=== PATIENT | male | born 1965 | race Caucasian/White ===

== ENCOUNTER 2020-10-09 14:03 | Emergency (ER) | payer MEDICARE ==
[2020-10-09 14:28] VITALS: TEMP 98.2
[2020-10-09 17:18] VITALS: BP 131/82; PULSE 71; RESP 18
--- NOTE | 2020-10-09 17:33 | ED ---
Abdominal Pain HPI - General Chief Complaint: Abdominal Pain Stated Complaint: ABD pain,Hot flashes Time Seen by Provider: 10/09/20 17:15 Source: patient Mode of arrival: ambulatory Limitations: no limitations - History of Present Illness Initial Comments: 55-year-old male presents to the emergency room with a chief complaint of back pain. States he tested positive for Covid on 10/08/20 and he has been experiencing generalized fatigue and body aches. States most of the pain is located in his lower back. He denies taking medication to relieve his symptoms. He does report having chills and fevers at home. Denies any chest pain or shortness of breath. Denies any abdominal pain, nausea vomiting diarrhea. Does report a nonproductive cough but denies any rhinorrhea, otalgia or sore throat. Patient requesting x-rays of his back. He denies saddle anesthesia, urinary retention with overflow incontinence or bowel incontinence. - Related Data Allergies Allergy/AdvReac Type Severity Reaction Status Date / Time No Known Allergies Allergy Verified 10/09/20 14:28 Review of Systems ROS Statement: Those systems with pertinent positive or pertinent negative responses have been documented in the HPI. ROS Other: All systems not noted in ROS Statement are negative. Past Medical History Past Medical History: Hypertension Additional Past Medical History / Comment(s): covid 10/17 History of Any Multi-Drug Resistant Organisms: None Reported Past Surgical History: Orthopedic Surgery Additional Past Surgical History / Comment(s): rt arm Past Psychological History: Anxiety Smoking Status: Never smoker Past Alcohol Use History: None Reported Past Drug Use History: None Reported General Exam Limitations: no limitations General appearance: alert, in no apparent distress Head exam: Present: atraumatic, normocephalic, normal inspection Eye exam: Present: normal appearance, PERRL, EOMI Pupils: Present: normal accommodation ENT exam: Present: normal exam, normal oropharynx, mucous membranes moist, TM's normal bilaterally, normal external ear exam Neck exam: Present: normal inspection, full ROM. Absent: tenderness Respiratory exam: Present: normal lung sounds bilaterally. Absent: respiratory distress, wheezes, rales, rhonchi, stridor, chest wall tenderness, accessory muscle use Cardiovascular Exam: Present: regular rate, normal rhythm, normal heart sounds. Absent: systolic murmur GI/Abdominal exam: Present: soft. Absent: distended, tenderness, guarding, rebound Extremities exam: Present: normal inspection, full ROM, normal capillary refill. Absent: tenderness, pedal edema, joint swelling Back exam: Present: normal inspection, full ROM, tenderness, paraspinal te nderness (Mild paraspinal tenderness in the lower lumbar region) Neurological exam: Present: alert, oriented X3, normal gait Psychiatric exam: Present: normal affect, normal mood Skin exam: Present: warm, dry, intact, normal color Course Vital Signs 10/09/20 10/09/20 14:25 17:16 Temperature 98.2 F Pulse Rate 93 71 Respiratory 20 18 Rate Blood Pressure 115/84 131/82 O2 Sat by Pulse 95 97 Oximetry Medical Decision Making - Medical Decision Making 55-year-old male presents to emergency Department with chief complaint of back pain. C covid-19d with positive on 10/08/20. No chest pain abdominal pain or shortness of breath. Vital signs within normal limits. Physical exam reveals mild paraspinal bilateral tenderness in the lower lumbar region. X-ray reveals moderate spondylosis at L5-S1. No concern for cauda equina at this time. Return parameters discussed the patient is understanding and agreeable. Case discussed with Dr. Lewis. Disposition Clinical Impression: Back pain Disposition: HOME SELF-CARE Condition: Stable Instructions (If sedation given, give patient instructions): Low Back Strain (ED) Additional Instructions: Please return to the Emergency Department if symptoms worsen or any other concerns. Is patient prescribed a controlled substance at d/c from ED?: No Referrals: Leonel Duque MD [Primary Care Provider] - 1-2 days Time of Disposition: 18:39
--- NOTE | 2020-10-09 18:24 | XR ---
EXAMINATION TYPE: XR lumbar spine 2 or 3V DATE OF EXAM: 10/09/2020 COMPARISON: NONE HISTORY: Back pain TECHNIQUE: 3 views FINDINGS: Lumbar vertebra have normal alignment. Posterior elements are intact. There is vacuum disc at L5-S1 with disc space narrowing. Sacroiliac joints are intact. There is no compression fracture. IMPRESSION: Moderate spondylosis at L5-S1. No fracture.
== END 2020-10-09 18:54 | disposition home or self-care (01) ==
LOC: EC 14:03
DX: M54.9 Dorsalgia, unspecified (principal); I10 Essential (primary) hypertension
CPT/HCPCS: 72100; 99284

== ENCOUNTER 2021-03-29 19:46 | Emergency (ER) | payer MEDICARE ==
[2021-03-29 20:00] VITALS: BP 136/82; PULSE 89; RESP 21; TEMP 98.9
--- NOTE | 2021-03-29 21:50 | XR ---
EXAMINATION TYPE: XR KUB DATE OF EXAM: 03/29/2021 COMPARISON: NONE HISTORY: Abdominal pain TECHNIQUE: 2 views FINDINGS: There is gaseous distention of multiple loops of bowel. There is no sign of free air. Lung bases are clear. There are no pathologic calcifications over the kidneys. IMPRESSION: There is evidence for some large and small bowel ileus. No free air.
--- NOTE | 2021-03-29 22:32 | ED ---
Abdominal Pain HPI - General Chief Complaint: Abdominal Pain Stated Complaint: SOB Time Seen by Provider: 03/29/21 20:27 Source: patient, Caregiver Mode of arrival: ambulatory - History of Present Illness Initial Comments: 55 year-old male patient presents to the emergency department for evaluation of abdominal pain for the last three days. States pain was over his entire abdomen, worse over the midepigastric region. States that today he has taken pepto-bismol without relief. Patient did feel somewhat short of breath prior to arrival. Denies any chest pain. Upon my evaluation patient is feeling much better. States that he passed a lot of gas while in the room and he believes it relieved his symptoms. Patient denies any constipation, nausea, vomiting, or any other symptoms. Denies fever or chills. Denies history of abdominal surgery. Patient denies any recent rash, cough, back pain, numbness, tingling, dizziness, weakness, hematuria, dysuria, urinary urgency, urinary frequency, headache, visual changes, or any other complaints. - Related Data Home Medications Medication Instructions Recorded Confirmed Albuterol Inhaler [Ventolin Hfa 2 puff INHALATION RT-Q6H PRN 03/29/21 03/29/21 Inhaler] Baclofen [Lioresal] 10 mg PO BID 03/29/21 03/29/21 Famotidine [Pepcid] 40 mg PO DAILY 03/29/21 03/29/21 OLANZapine 10 mg PO HS 03/29/21 03/29/21 Umeclidinium Brm/Vilanterol Tr 1 puff INHALATION RT-DAILY 03/29/21 03/29/21 [Anoro Ellipta 62.5-25 Mcg INH] hydrOXYzine pamoate [Vistaril] 100 mg PO BID PRN 03/29/21 03/29/21 rOPINIRole HCL [Requip] 1 mg PO HS 03/29/21 03/29/21 rOPINIRole HCL [Requip] 3 mg PO HS 03/29/21 03/29/21 Allergies Allergy/AdvReac Type Severity Reaction Status Date / Time No Known Allergies Allergy Verified 03/29/21 21:40 Review of Systems ROS Statement: Those systems with pertinent positive or pertinent negative responses have been documented in the HPI. ROS Other: All systems not noted in ROS Statement are negative. Past Medical History Past Medical History: Hypertension Additional Past Medical History / Comment(s): covid 10/17 History of Any Multi-Drug Resistant Organisms: None Reported Past Surgical History: Orthopedic Surgery Additional Past Surgical History / Comment(s): rt arm Past Psychological History: Anxiety Smoking Status: Never smoker Past Alcohol Use History: None Reported Past Drug Use History: None Reported General Exam General appearance: alert, in no apparent distress, other (This is a well- developed, well-nourished adult male patient in no acute distress. Vital signs upon presentation are temperature 98.9F, pulse 89, respirations 21, blood pressure 136/82, pulse ox 96% on room air.) ENT exam: Present: normal exam, normal oropharynx, mucous membranes moist Respiratory exam: Present: normal lung sounds bilaterally. Absent: respiratory distress, wheezes, rales, rhonchi, stridor Cardiovascular Exam: Present: regular rate, normal rhythm, normal heart sounds. Absent: systolic murmur, diastolic murmur, rubs, gallop, clicks GI/Abdominal exam: Present: soft, normal bowel sounds, other (No tenderness to deep palpation of all 4 quadrants and midepigastric region of the abdomen). Absent: distended, tenderness, guarding, rebound, rigid Neurological exam: Present: alert Psychiatric exam: Present: normal affect, normal mood Skin exam: Present: warm, dry, intact, normal color. Absent: rash Course Vital Signs 03/29/21 19:56 Temperature 98.9 F Pulse Rate 89 Respiratory 21 Rate Blood Pressure 136/82 O2 Sat by Pulse 96 Oximetry Medical Decision Making - Medical Decision Making 55-year-old male patient presents to the emergency department today for evaluation of abdominal pain for the last 3 days. During my evaluation patient states that all symptoms resolved after he passed a large amount of gas while waiting in his room. Physical examination is unremarkable. Abdomen is soft and nontender. He is no pain to deep palpation of all 4 quadrants in the midepigastric region of his abdomen. Brother did express some concern for possible constipation as I did perform x-ray of the abdomen which showed evidence for gaseous distention of the large and small bowel consistent with ileus. Patient was reevaluated and again expresses complete resolution of all symptoms. They do feel comfortable being discharged home at this time. We discharged follow up with the primary care physician for recheck in 1-2 days. Return parameters were discussed in great detail. Patient and caregiver verbalize understanding and agree with this plan. Case is discussed with my attending Dr. Murguia. - Radiology Data Radiology results: report reviewed, image reviewed KUB x-ray is obtained. Report was reviewed in its entirety. Impression by Dr. Cantor shows evidence for some large and small bowel ileus. No free air. Disposition Clinical Impression: Abdominal pain Disposition: ADMITTED IP TO THIS [facility] Condition: Good Instructions (If sedation given, give patient instructions): Ileus (ED) Additional Instructions: Pop with the primary care physician for recheck in 1-2 days. Return to the emergency department for any new, worsening, or concerning symptoms. Is patient prescribed a controlled substance at d/c from ED?: No Referrals: Leonel Duque MD [Primary Care Provider] - 1-2 days Time of Disposition: 22:32
== END 2021-03-29 22:48 | disposition other institution (70) ==
LOC: EEVIPCON 19:46 → EC 19:46
DX: R10.13 Epigastric pain (principal); I10 Essential (primary) hypertension; F41.9 Anxiety disorder, unspecified; Z79.51 Long term (current) use of inhaled steroids; Z79.899 Other long term (current) drug therapy
CPT/HCPCS: 74018; 99284

== ENCOUNTER 2021-04-29 10:11 | Emergency (ER) | payer MEDICARE ==
[2021-04-29 10:26] VITALS: TEMP 97.1
--- NOTE | 2021-04-29 10:54 | ED ---
General Adult HPI - General Chief complaint: Shortness of Breath Stated complaint: SOB Time Seen by Provider: 04/29/21 10:30 Source: family, RN notes reviewed, Caregiver Mode of arrival: ambulatory Limitations: altered mental status, physical limitation - History of Present Illness Initial comments: 55-year-old male presents to the emergency room for a chief complaint of shortness of breath. Caregiver reports patient has been sick for the past 2 weeks. States he has had cough and congestion and been short of breath. States his episodes or he starts breathing quickly. He did do a course of amoxicillin from primary care provider but it did not seem to help. No fevers. Caregiver states he complains of pain in his throat like something is stuck in his throat such as phlegm. Patient is eating and drinking normally. he also has been complaining of pain into his chest since all of this started. He is not able to describe the pain to me. Patient has no other complaints at this time including abdominal pain, nausea or vomiting, headache, or visual changes. - Related Data Home Medications Medication Instructions Recorded Confirmed Albuterol Inhaler [Ventolin Hfa 2 puff INHALATION RT-Q6H PRN 03/29/21 03/29/21 Inhaler] Baclofen [Lioresal] 10 mg PO BID 03/29/21 03/29/21 Famotidine [Pepcid] 40 mg PO DAILY 03/29/21 03/29/21 OLANZapine 10 mg PO HS 03/29/21 03/29/21 Umeclidinium Brm/Vilanterol Tr 1 puff INHALATION RT-DAILY 03/29/21 03/29/21 [Anoro Ellipta 62.5-25 Mcg INH] hydrOXYzine pamoate [Vistaril] 100 mg PO BID PRN 03/29/21 03/29/21 rOPINIRole HCL [Requip] 1 mg PO HS 03/29/21 03/29/21 rOPINIRole HCL [Requip] 3 mg PO HS 03/29/21 03/29/21 Allergies Allergy/AdvReac Type Severity Reaction Status Date / Time No Known Allergies Allergy Verified 04/29/21 10:26 Review of Systems ROS Statement: Those systems with pertinent positive or pertinent negative responses have been documented in the HPI. ROS Other: All systems not noted in ROS Statement are negative. Past Medical History Past Medical History: Hypertension Additional Past Medical History / Comment(s): covid 10/17, mentally challenged History of Any Multi-Drug Resistant Organisms: None Reported Past Surgical History: Orthopedic Surgery Additional Past Surgical History / Comment(s): rt arm Past Psychological History: Anxiety Smoking Status: Never smoker Past Alcohol Use History: None Reported Past Drug Use History: None Reported General Exam Limitations: altered mental status, physical limitation General appearance: alert, in no apparent distress Head exam: Present: atraumatic Eye exam: Present: normal appearance, PERRL, EOMI. Absent: scleral icterus, conjunctival injection ENT exam: Present: normal exam, mucous membranes moist Neck exam: Present: normal inspection, full ROM. Absent: tenderness Respiratory exam: Present: normal lung sounds bilaterally. Absent: respiratory distress, wheezes Cardiovascular Exam: Present: regular rate, normal rhythm, normal heart sounds GI/Abdominal exam: Present: soft, normal bowel sounds. Absent: distended, tenderness Neurological exam: Present: alert Course Vital Signs 04/29/21 04/29/21 10:21 11:40 Temperature 97.1 F L Pulse Rate 70 Respiratory 18 20 Rate Blood Pressure 118/71 O2 Sat by Pulse 98 Oximetry EKG Findings - EKG Comments: EKG Findings:: Sinus bradycardia, ventricular rate 59, AK interval 136, QTC 419 Medical Decision Making - Medical Decision Making Vitals are stable. Physical exam is unremarkable. Oropharynx appears normal. Lungs are clear to auscultation bilaterally. CBC is unremarkable. CMP is unremarkable as well. Troponin is negative. Mendez virus and strep are negative. I did obtain a chest x-ray and a soft tissue neck x-ray. No significant abnormalities. He says discussed with Dr. Duong. At this time patient is stable for outpatient follow-up. He would benefit from ENT referral and direct visualization of the throat. Patient will be discharged home to follow up and will return here for worsening symptoms. - Lab Data Result diagrams: 04/29/21 11:38 04/29/21 11:38 Lab Results 04/29/21 04/29/21 04/29/21 Range/Units 11:38 11:38 11:38 WBC 8.6 (3.8-10.6) k/uL RBC 5.39 (4.30-5.90) m/uL Hgb 14.9 (13.0-17.5) gm/dL Hct 45.5 (39.0-53.0) % MCV 84.4 (80.0-100.0) fL MCH 27.7 (25.0-35.0) pg MCHC 32.9 (31.0-37.0) g/dL RDW 14.0 (11.5-15.5) % Plt Count 322 (150-450) k/uL MPV 6.7 Neutrophils % 78 % Lymphocytes % 16 % Monocytes % 4 % Eosinophils % 1 % Basophils % 0 % Neutrophils # 6.7 (1.3-7.7) k/uL Lymphocytes # 1.4 (1.0-4.8) k/uL Monocytes # 0.3 (0-1.0) k/uL Eosinophils # 0.1 (0-0.7) k/uL Basophils # 0.0 (0-0.2) k/uL PT 10.3 (9.0-12.0) sec INR 1.0 (<1.2) APTT 24.5 (22.0-30.0) sec Sodium 137 (137-145) mmol/L Potassium 4.5 (3.5-5.1) mmol/L Chloride 107 (98-107) mmol/L Carbon Dioxide 23 (22-30) mmol/L Anion Gap 7 mmol/L BUN 18 (9-20) mg/dL Creatinine 0.91 (0.66-1.25) mg/dL Est GFR (CKD-EPI)AfAm >90 (>60 ml/min/1.73 sqM) Est GFR (CKD-EPI)NonAf >90 (>60 ml/min/1.73 sqM) Glucose 109 H (74-99) mg/dL Plasma Lactic Acid Herb (0.7-2.0) mmol/L Calcium 9.8 (8.4-10.2) mg/dL Total Bilirubin 0.9 (0.2-1.3) mg/dL AST 25 (17-59) U/L ALT 33 (4-49) U/L Alkaline Phosphatase 67 (38-126) U/L Troponin I (0.000-0.034) ng/mL NT-Pro-B Natriuret Pep pg/mL Total Protein 6.0 L (6.3-8.2) g/dL Albumin 3.8 (3.5-5.0) g/dL Coronavirus (PCR) (Not Detectd) Group A Strep Rapid (Negative) 04/29/21 04/29/21 04/29/21 Range/Units 11:38 11:38 11:38 WBC (3.8-10.6) k/uL RBC (4.30-5.90) m/uL Hgb (13.0-17.5) gm/dL Hct (39.0-53.0) % MCV (80.0-100.0) fL MCH (25.0-35.0) pg MCHC (31.0-37.0) g/dL RDW (11.5-15.5) % Plt Count (150-450) k/uL MPV Neutrophils % % Lymphocytes % % Monocytes % % Eosinophils % % Basophils % % Neutrophils # (1.3-7.7) k/uL Lymphocytes # (1.0-4.8) k/uL Monocytes # (0-1.0) k/uL Eosinophils # (0-0.7) k/uL Basophils # (0-0.2) k/uL PT (9.0-12.0) sec INR (<1.2) APTT (22.0-30.0) sec Sodium (137-145) mmol/L Potassium (3.5-5.1) mmol/L Chloride (98-107) mmol/L Carbon Dioxide (22-30) mmol/L Anion Gap mmol/L BUN (9-20) mg/dL Creatinine (0.66-1.25) mg/dL Est GFR (CKD-EPI)AfAm (>60 ml/min/1.73 sqM) Est GFR (CKD-EPI)NonAf (>60 ml/min/1.73 sqM) Glucose (74-99) mg/dL Plasma Lactic Acid Herb 1.6 (0.7-2.0) mmol/L Calcium (8.4-10.2) mg/dL Total Bilirubin (0.2-1.3) mg/dL AST (17-59) U/L ALT (4-49) U/L Alkaline Phosphatase (38-126) U/L Troponin I <0.012 (0.000-0.034) ng/mL NT-Pro-B Natriuret Pep 285 pg/mL Total Protein (6.3-8.2) g/dL Albumin (3.5-5.0) g/dL Coronavirus (PCR) (Not Detectd) Group A Strep Rapid (Negative) 04/29/21 04/29/21 Range/Units 11:38 11:38 WBC (3.8-10.6) k/uL RBC (4.30-5.90) m/uL Hgb (13.0-17.5) gm/dL Hct (39.0-53.0) % MCV (80.0-100.0) fL MCH (25.0-35.0) pg MCHC (31.0-37.0) g/dL RDW (11.5-15.5) % Plt Count (150-450) k/uL MPV Neutrophils % % Lymphocytes % % Monocytes % % Eosinophils % % Basophils % % Neutrophils # (1.3-7.7) k/uL Lymphocytes # (1.0-4.8) k/uL Monocytes # (0-1.0) k/uL Eosinophils # (0-0.7) k/uL Basophils # (0-0.2) k/uL PT (9.0-12.0) sec INR (<1.2) APTT (22.0-30.0) sec Sodium (137-145) mmol/L Potassium (3.5-5.1) mmol/L Chloride (98-107) mmol/L Carbon Dioxide (22-30) mmol/L Anion Gap mmol/L BUN (9-20) mg/dL Creatinine (0.66-1.25) mg/dL Est GFR (CKD-EPI)AfAm (>60 ml/min/1.73 sqM) Est GFR (CKD-EPI)NonAf (>60 ml/min/1.73 sqM) Glucose (74-99) mg/dL Plasma Lactic Acid Herb (0.7-2.0) mmol/L Calcium (8.4-10.2) mg/dL Total Bilirubin (0.2-1.3) mg/dL AST (17-59) U/L ALT (4-49) U/L Alkaline Phosphatase (38-126) U/L Troponin I (0.000-0.034) ng/mL NT-Pro-B Natriuret Pep pg/mL Total Protein (6.3-8.2) g/dL Albumin (3.5-5.0) g/dL Coronavirus (PCR) Not Detected (Not Detectd) Group A Strep Rapid Negative (Negative) Disposition Clinical Impression: Pharyngitis Disposition: HOME SELF-CARE Condition: Good Instructions (If sedation given, give patient instructions): Pharyngitis (ED) Additional Instructions: Please call ENT today to make earliest appointment. Return to the emergency room for any worsening symptoms. Is patient prescribed a controlled substance at d/c from ED?: No Referrals: Leonel Duque MD [Primary Care Provider] - 1-2 days Rod Vera MD [STAFF PHYSICIAN] - 1-2 days Time of Disposition: 13:55
[2021-04-29 12:04] LABS: Basophils % (A) 0 %; Eosinophils # (A) 0.1 k/uL (0-0.7); Eosinophils % (A) 1 %; HCT 45.5 % (39.0-53.0); HGB 14.9 gm/dL (13.0-17.5); Lymphocytes # (A) 1.4 k/uL (1.0-4.8); Lymphocytes % (A) 16 %; MCH 27.7 pg (25.0-35.0); MCHC 32.9 g/dL (31.0-37.0); MCV 84.4 fL (80.0-100.0); Mean Platelet Volume 6.7; Monocytes # (A) 0.3 k/uL (0-1.0); Monocytes % (A) 4 %; Neutrophils # (A) 6.7 k/uL (1.3-7.7); Neutrophils % (A) 78 %; Platelet Count 322 k/uL (150-450); RBC 5.39 m/uL (4.30-5.90); WBC 8.6 k/uL (3.8-10.6)
[2021-04-29 12:12] LABS: Partial Thromboplastin Time 24.5 sec (22.0-30.0); Prothrombin Time 10.3 sec (9.0-12.0)
--- NOTE | 2021-04-29 12:19 | XR ---
EXAMINATION TYPE: XR chest 2V DATE OF EXAM: 04/29/2021 COMPARISON: 10/06/2012 TECHNIQUE: PA and lateral views submitted. HISTORY: Pain FINDINGS: The lungs are clear and there is no pneumothorax, pleural effusion, or focal pneumonia. Poor inflat ion. Heart size normal. No overt failure. Mild hypertrophic change of the spine. IMPRESSION: 1. Correlate for COPD
--- NOTE | 2021-04-29 12:22 | XR ---
EXAMINATION TYPE: XR soft tissue neck DATE OF EXAM: 04/29/2021 COMPARISON: NONE HISTORY: Pain TECHNIQUE: 2 view submitted FINDINGS: Mild degenerative change of the spine. Prevertebral soft tissue structures within normal limits. Epiglottis not well seen. Airway appears pa tent. IMPRESSION: Limited assessment of the epiglottis. Prevertebral soft tissue structures within normal l imits and airway appears patent. If concern for foreign body correlate with direct visualization as c linically warranted.
[2021-04-29 12:34] LABS: ALT 33 U/L (4-49); AST 25 U/L (17-59); African American GFR (CKD) >90 (>60 ml/min/1.73 sqM); Albumin 3.8 g/dL (3.5-5.0); Alkaline Phosphatase 67 U/L (38-126); Anion Gap 7 mmol/L; Blood Urea Nitrogen 18 mg/dL (9-20); Calcium 9.8 mg/dL (8.4-10.2); Carbon Dioxide 23 mmol/L (22-30); Chloride 107 mmol/L (98-107); Glucose 109 mg/dL (74-99); Non-African American GFR(CKD) >90 (>60 ml/min/1.73 sqM); Potassium 4.5 mmol/L (3.5-5.1); Sodium 137 mmol/L (137-145); Total Bilirubin 0.9 mg/dL (0.2-1.3)
[2021-04-29 15:05] VITALS: RESP 18
[2021-04-29 15:06] VITALS: BP 137/99; PULSE 59
== END 2021-04-29 15:06 | disposition home or self-care (01) ==
LOC: EC 10:11
DX: J02.9 Acute pharyngitis, unspecified (principal); I10 Essential (primary) hypertension; F41.9 Anxiety disorder, unspecified; Z79.51 Long term (current) use of inhaled steroids; Z79.899 Other long term (current) drug therapy; Z20.822 Contact with and (suspected) exposure to COVID-19
CPT/HCPCS: 36415; 70360; 71046; 80053; 83605; 83880; 84484; 85025; 85610; 85730; 87081; 87430; 87635; 93005; 99285

== ENCOUNTER 2021-05-01 01:18 | Emergency (ER) | payer MEDICARE ==
[2021-05-01] MEDS ORDERED: DIAZEPAM 5 MG/ML 2 ML INJ IVP STA (03:51)
[2021-05-01] MEDS ORDERED: diphenhydrAMINE 50 MG/ML 1 ML VIAL IVP STA (03:51)
[2021-05-01] MEDS ORDERED: SODIUM CHLORIDE 0.9% 1,000 ML IV STA (03:51)
--- NOTE | 2021-05-01 03:56 | ED ---
Anxiety HPI - General Chief Complaint: Shortness of Breath Stated Complaint: Dizziness Time Seen by Provider: 05/01/21 02:40 Source: patient, RN notes reviewed, old records reviewed Mode of arrival: ambulatory Limitations: no limitations - History of Present Illness Initial Comments: This is a 55-year-old male to the emergency room today. Patient Dese for evaluation of shortness of breath severe. Severe anxiety difficulty catching his breath but otherwise no recent travel history or sick contacts. Patient has multiple ER visits the last 2 days for similar complaint, patient denies drug or alcohol abuse MD Complaint: anxiety, heart racing, shortness of breath -: days(s) Symptoms: dyspnea, chest pain, palpitations Place: home Previous History of Same: Yes Severity: moderate Quality: intermittent Provoking factors: emotional stress Improves With: nothing Worsens With: nothing Associated symptoms: shortness of breath, palpitations - Related Data Home Medications: Home Medications Medication Instructions Recorded Confirmed Albuterol Inhaler [Ventolin Hfa 2 puff INHALATION RT-Q6H PRN 03/29/21 03/29/21 Inhaler] Baclofen [Lioresal] 10 mg PO BID 03/29/21 03/29/21 Famotidine [Pepcid] 40 mg PO DAILY 03/29/21 03/29/21 OLANZapine 10 mg PO HS 03/29/21 03/29/21 Umeclidinium Brm/Vilanterol Tr 1 puff INHALATION RT-DAILY 03/29/21 03/29/21 [Anoro Ellipta 62.5-25 Mcg INH] hydrOXYzine pamoate [Vistaril] 100 mg PO BID PRN 03/29/21 03/29/21 rOPINIRole HCL [Requip] 1 mg PO HS 03/29/21 03/29/21 rOPINIRole HCL [Requip] 3 mg PO HS 03/29/21 03/29/21 Allergies/Adverse Reactions: Allergies Allergy/AdvReac Type Severity Reaction Status Date / Time No Known Allergies Allergy Verified 05/01/21 01:25 Review of Systems ROS Statement: Those systems with pertinent positive or pertinent negative responses have been documented in the HPI. ROS Other: All systems not noted in ROS Statement are negative. Past Medical History Past Medical History: Hypertension Additional Past Medical History / Comment(s): covid 10/17, mentally challenged History of Any Multi-Drug Resistant Organisms: None Reported Past Surgical History: Orthopedic Surgery Additional Past Surgical History / Comment(s): rt arm Past Psychological History: Anxiety Smoking Status: Never smoker Past Alcohol Use History: None Reported Past Drug Use History: None Reported General Exam Limitations: no limitations General appearance: alert, in no apparent distress Head exam: Present: atraumatic, normocephalic, normal inspection Eye exam: Present: normal appearance, PERRL, EOMI. Absent: scleral icterus, conjunctival injection, periorbital swelling ENT exam: Present: normal exam, mucous membranes moist Neck exam: Present: normal inspection. Absent: tenderness, meningismus, lymphadenopathy Respiratory exam: Present: normal lung sounds bilaterally. Absent: respiratory distress, wheezes, rales, rhonchi, stridor Cardiovascular Exam: Present: regular rate, normal rhythm, normal heart sounds. Absent: systolic murmur, diastolic murmur, rubs, gallop, clicks GI/Abdominal exam: Present: soft, normal bowel sounds. Absent: distended, tenderness, guarding, rebound, rigid Extremities exam: Present: normal inspection, full ROM, normal capillary refill. Absent: tenderness, pedal edema, joint swelling, calf tenderness Back exam: Present: normal inspection Neurological exam: Present: alert, oriented X3, CN II-XII intact Psychiatric exam: Present: normal affect, normal mood Skin exam: Present: warm, dry, intact, normal color. Absent: rash Course Vital Signs 05/01/21 05/01/21 05/01/21 01:22 03:38 06:00 Temperature 97.1 F L Pulse Rate 73 78 49 L Respiratory 22 22 18 Rate Blood Pressure 135/75 137/70 117/72 O2 Sat by Pulse 100 100 99 Oximetry - Reevaluation(s) Reevaluation #1: 05/01/21 04:07 Medical record is reviewed Reevaluation #2: 05/01/21 06:55 Didn't completely resolved here in the ER Reevaluation #3: 05/01/21 06:55 Patient and family regarding findings, questions answered Medical Decision Making - Medical Decision Making 55 male with significant anxiety reaction shaking tremors unable to catch his breath does have a normal computed tomography scan, normal x-ray normal lab values and patient can be discharged home - Lab Data Result diagrams: 05/01/21 03:47 11/03/21 03:47 Lab Results 05/01/21 05/01/21 05/01/21 Range/Units 03:47 03:47 03:47 WBC 7.6 (3.8-10.6) k/uL RBC 5.13 (4.30-5.90) m/uL Hgb 13.8 (13.0-17.5) gm/dL Hct 43.1 (39.0-53.0) % MCV 83.9 (80.0-100.0) fL MCH 26.9 (25.0-35.0) pg MCHC 32.1 (31.0-37.0) g/dL RDW 14.1 (11.5-15.5) % Plt Count 299 (150-450) k/uL MPV 6.9 Neutrophils % 78 % Lymphocytes % 16 % Monocytes % 4 % Eosinophils % 1 % Basophils % 0 % Neutrophils # 5.9 (1.3-7.7) k/uL Lymphocytes # 1.2 (1.0-4.8) k/uL Monocytes # 0.3 (0-1.0) k/uL Eosinophils # 0.1 (0-0.7) k/uL Basophils # 0.0 (0-0.2) k/uL Sodium 138 (137-145) mmol/L Potassium 4.5 (3.5-5.1) mmol/L Chloride 108 H (98-107) mmol/L Carbon Dioxide 24 (22-30) mmol/L Anion Gap 6 mmol/L BUN 25 H (9-20) mg/dL Creatinine 0.92 (0.66-1.25) mg/dL Est GFR (CKD-EPI)AfAm >90 (>60 ml/min/1.73 sqM) Est GFR (CKD-EPI)NonAf >90 (>60 ml/min/1.73 sqM) Glucose 105 H (74-99) mg/dL Calcium 10.0 (8.4-10.2) mg/dL Phosphorus 3.1 (2.5-4.5) mg/dL Magnesium 2.2 (1.6-2.3) mg/dL Total Bilirubin 0.5 (0.2-1.3) mg/dL AST 26 (17-59) U/L ALT 32 (4-49) U/L Alkaline Phosphatase 62 (38-126) U/L Troponin I <0.012 (0.000-0.034) ng/mL Total Protein 6.1 L (6.3-8.2) g/dL Albumin 4.0 (3.5-5.0) g/dL - EKG Data -: EKG Interpreted by Me (EKG shows sinus rhythm 65 [place] 148 QRS 84 QTc 455) - Radiology Data Radiology results: report reviewed (CT brain and chest x-ray are negative for acute disease), image reviewed Disposition Clinical Impression: Dizziness, Anxiety Disposition: HOME SELF-CARE Condition: Good Instructions (If sedation given, give patient instructions): Dizziness (ED) Is patient prescribed a controlled substance at d/c from ED?: No Referrals: Leonel Duque MD [Primary Care Provider] - 1-2 days
--- NOTE | 2021-05-01 04:22 | XR ---
EXAMINATION TYPE: XR chest 1V portable DATE OF EXAM: 05/01/2021 COMPARISON: 04/29/2021 HISTORY: Short of breath TECHNIQUE: Single view FINDINGS: There is no heart failure nor confluent pneumonic infiltrate. Costophrenic angles are clear . There are no hilar masses. There are chest leads. IMPRESSION: No active cardiopulmonary disease. Normal heart. No change.
[2021-05-01 04:28] LABS: Basophils % (A) 0 %; Eosinophils # (A) 0.1 k/uL (0-0.7); Eosinophils % (A) 1 %; HCT 43.1 % (39.0-53.0); HGB 13.8 gm/dL (13.0-17.5); Lymphocytes # (A) 1.2 k/uL (1.0-4.8); Lymphocytes % (A) 16 %; MCH 26.9 pg (25.0-35.0); MCHC 32.1 g/dL (31.0-37.0); MCV 83.9 fL (80.0-100.0); Mean Platelet Volume 6.9; Monocytes # (A) 0.3 k/uL (0-1.0); Monocytes % (A) 4 %; Neutrophils # (A) 5.9 k/uL (1.3-7.7); Neutrophils % (A) 78 %; Platelet Count 299 k/uL (150-450); RBC 5.13 m/uL (4.30-5.90); RDW 14.1 % (11.5-15.5); WBC 7.6 k/uL (3.8-10.6)
[2021-05-01 04:42] LABS: ALT 32 U/L (4-49); AST 26 U/L (17-59); African American GFR (CKD) >90 (>60 ml/min/1.73 sqM); Alkaline Phosphatase 62 U/L (38-126); Anion Gap 6 mmol/L; Blood Urea Nitrogen 25 mg/dL (9-20); Carbon Dioxide 24 mmol/L (22-30); Chloride 108 mmol/L (98-107); Glucose 105 mg/dL (74-99); Magnesium 2.2 mg/dL (1.6-2.3); Non-African American GFR(CKD) >90 (>60 ml/min/1.73 sqM); Phosphorus 3.1 mg/dL (2.5-4.5); Potassium 4.5 mmol/L (3.5-5.1); Sodium 138 mmol/L (137-145); Total Bilirubin 0.5 mg/dL (0.2-1.3); Total Protein 6.1 g/dL (6.3-8.2)
--- NOTE | 2021-05-01 05:07 | CT ---
EXAMINATION TYPE: CT brain wo con DATE OF EXAM: 05/01/2021 COMPARISON: 06/01/2012 HISTORY: weak CT DLP: 1139.4 mGycm Automated exposure control for dose reduction was used. Exam performed with no contrast. Ventricles have normal size. There is no mass effect nor midline shift. There is no sign of intracran ial hemorrhage. Calvarium is intact. Skull base is intact. There is normal aeration of the mastoid si nuses. IMPRESSION: Negative CT scan of the brain. No change.
[2021-05-01 06:30] VITALS: RESP 18
[2021-05-01 07:07] VITALS: BP 135/88; PULSE 53; TEMP 97.9
== END 2021-05-01 07:00 | disposition home or self-care (01) ==
LOC: EC 01:18
DX: F41.9 Anxiety disorder, unspecified (principal); R42 Dizziness and giddiness; I10 Essential (primary) hypertension
CPT/HCPCS: 93005; 80053; 83735; 84100; 84484; 85025; 71045; 70450; 99285; 96374; 96375; 96361; J1200; J3360

== ENCOUNTER → 2021-09-05 | Outpatient (CLI) | payer MEDICARE ==
[2021-09-05 15:09] LABS: Basophils # (A) 0.04 X 10*3/uL (0.00-0.10); Basophils % (A) 0.7 %; Eosinophils # (A) 0.15 X 10*3/uL (0.04-0.35); Eosinophils % (A) 2.5 %; HCT 47.2 % (39.6-50.0); HGB 15.3 g/dL (13.0-17.0); Immature Grans, Automated 0.8 %; Lymphocytes # (A) 2.01 X 10*3/uL (0.90-5.00); Lymphocytes % (A) 33.2 %; MCH 26.9 pg (27.0-32.0); MCHC 32.4 g/dL (32.0-37.0); MCV 83.1 fL (80.0-97.0); Mean Platelet Volume 9.3 fL (9.5-12.2); Monocytes # (A) 0.38 X 10*3/uL (0.20-1.00); Monocytes % (A) 6.3 %; NRBC Per 100 WBC 0 /100 WBCS (0.0-0.0); Neutrophils # (A) 3.43 X 10*3/uL (1.80-7.70); Neutrophils % (A) 56.5 %; Platelet Count 297 X 10*3/uL (140-440); RBC 5.68 X 10*6/uL (4.40-5.60); WBC 6.06 X 10*3/uL (4.50-10.00)
[2021-09-05 15:36] LABS: African American GFR (CKD) 71.7 (60.0-200.0); Albumin 4.2 g/dL (3.8-4.9); Albumin/Globulin Ratio 2.12 (1.60-3.17); Anion Gap 13.8 mmol/L (10.00-18.00); BUN/Creat Ratio 18.82 Ratio (12.00-20.00); Blood Urea Nitrogen 23.9 mg/dL (9.0-27.0); Calcium 9.2 mg/dL (8.7-10.3); Carbon Dioxide 23.6 mmol/L (20.0-27.5); HDL Cholesterol 70.5 mg/dL (40.00-60.00); Non-African American GFR(CKD) 61.9 (60.0-200.0); Potassium 4.1 mmol/L (3.5-5.5); T4, Free (Free Thyroxine) 1.53 ng/dL (0.800-1.800); Total Bilirubin 0.4 mg/dL (0.30-1.20); Total Protein 6.1 g/dL (6.2-8.2); Triglycerides 49.9 mg/dL (0.00-149.00)
[2021-09-05 15:48] LABS: Chol/HDL Ratio 2.13 Ratio; LDL Cholesterol,Direct Reflex 69.2 mg/dL (0.00-129.00)
== END | disposition home or self-care (01) ==
LOC: LABWHC1 09:01
PROVIDERS: ATTEND Psychiatry & Neurology Psychiatry
DX: Z79.899 Other long term (current) drug therapy (principal)
CPT/HCPCS: 36415; 80053; 80061; 82306; 83036; 83721; 84439; 84443; 85025

== ENCOUNTER 2022-07-28 09:35 | Day surgery (SDC) | payer MEDICARE, OTHER ==
[2022-07-25 08:29] VITALS: BMI 33.0
[2022-07-28 10:25] VITALS: RESP 16; TEMP 97.9
[2022-07-28] MEDS ORDERED: LACTATED RINGERS 1,000 ML IV ONE (10:25)
[2022-07-28] MEDS ORDERED: LIDOCAINE 1% (10MG/ML) FOR IV START INTRADERMA ONE (10:27)
[2022-07-28] MEDS ORDERED: PROPOFOL 10 MG/ML 20 ML VIAL IV ONE (11:12)
--- NOTE | 2022-07-28 11:33 | P.PCN ---
Date of Procedure: 07/28/22 Preoperative Diagnosis: Colon cancer screening, heme positive stool Postoperative Diagnosis: Colon cancer screening, heme positive stool, colon polyp Procedure(s) Performed: Colonoscopy with polypectomy Anesthesia: MAC Surgeon: Anny Honeycutt Pathology: other (Yinka) Condition: stable Disposition: PACU Description of Procedure: Patient's 57-year-old man who is taken to the endoscopy suite where colonoscope is passed per rectum to the cecum. There is a very good prep. He has a polyp at the proximal transverse colon removed with polypectomy snare. Otherwise the colon was without evidence of mass lesion, ulcer, stricture, diverticuli or other mucosal abnormality. No significant hemorrhoidal disease was seen on retroflexion of the scope. He tolerated the procedure without difficulty and is taken to recovery room in satisfactory condition. We will call the brother with report of the polypectomy but likely repeat colonoscopy in 5 years Plan - Discharge Summary Discharge Rx Participant: No New Discharge Prescriptions: No Action Famotidine [Pepcid] 40 mg PO HS busPIRone HCL 5 mg PO TID Venlafaxine HCl [Effexor XR] 37.5 mg PO HS Budesonide-Formot 160-4.5 Mcg [Symbicort 160-4.5 Mcg Inhaler] 2 puff INHALATION BID OLANZapine 10 mg PO HS Discharge Medication List Famotidine [Pepcid] 40 mg PO HS 03/29/21 [History] OLANZapine 10 mg PO HS 03/29/21 [History] Budesonide-Formot 160-4.5 Mcg [Symbicort 160-4.5 Mcg Inhaler] 2 puff INHALATION BID 07/25/22 [History] Venlafaxine HCl [Effexor XR] 37.5 mg PO HS 07/25/22 [History] busPIRone HCL 5 mg PO TID 07/25/22 [History] Discharge Disposition: HOME SELF-CARE
[2022-07-28 12:08] VITALS: BP 135/86; PULSE 65
== END 2022-07-28 12:29 | disposition home or self-care (01) ==
LOC: ORWHC2ENDO 09:35
PROVIDERS: ATTEND Surgery
DX: D12.3 Benign neoplasm of transverse colon (principal); J44.9 Chronic obstructive pulmonary disease, unspecified; K21.9 Gastro-esophageal reflux disease without esophagitis; Z79.899 Other long term (current) drug therapy; Z98.890 Other specified postprocedural states
CPT/HCPCS: 88305; 45385; J2704

== ENCOUNTER 2023-09-15 07:04 | Emergency (ER) | payer MEDICARE, OTHER ==
[2023-09-15 07:16] VITALS: RESP 18; TEMP 97.4
--- NOTE | 2023-09-15 07:36 | ED ---
General Adult HPI - General Chief complaint: Dental/Oral Stated complaint: Facial Swelling Time Seen by Provider: 09/15/23 07:13 Source: patient Mode of arrival: ambulatory Limitations: no limitations - History of Present Illness Initial comments: Dictation was produced using [employer] dictation software. please excuse any grammatical, word or spelling errors. Chief Complaint: 58-year-old male presents to the emergency department with dental pain History of Present Illness: Patient is a 58-year-old male he is brought to the emergency department by his brother for dental pain. Patient has history of poor dentition. Plan was for patient to have several teeth removed for dentures. Over the last 3 days he has been having left-sided dental pain. His brother did make an appointment with dentist however appointment was delayed until September. Patient states he has pain to the left maxillary teeth. Complains of some swelling to the right side of the face. The ROS documented in this emergency department record has been reviewed and confirmed by me. Those systems with pertinent positive or negative responses have been documented in the HPI. All other systems are other negative and/or noncontributory. - Related Data Home Medications Medication Instructions Recorded Confirmed Famotidine [Pepcid] 40 mg PO HS 03/29/21 08/23/22 OLANZapine 10 mg PO HS 03/29/21 08/23/22 Venlafaxine HCl [Effexor XR] 37.5 mg PO HS 07/25/22 08/23/22 busPIRone HCL 5 mg PO TID 07/25/22 08/23/22 Albuterol Inhaler [Ventolin Hfa 2 puff INHALATION RT-Q6H PRN 08/23/22 08/23/22 Inhaler] Fluticasone/Umeclidin/Vilanter 1 puff INHALATION RT-DAILY 08/23/22 08/23/22 [Trelegy Ellipta 100-62.5-25] Previous Rx's Medication Instructions Recorded Amoxic-Pot Clav 875-125Mg 1 tab PO BID 10 Days #20 tab 09/15/23 [Augmentin 875-125] HYDROcodone/APAP 5-325MG [[place] 1 tab PO Q6HR PRN 3 Days #12 tab 09/15/23 5-325] Allergies Allergy/AdvReac Type Severity Reaction Status Date / Time No Known Allergies Allergy Verified 09/15/23 07:11 Review of Systems ROS Statement: Those systems with pertinent positive or pertinent negative responses have been documented in the HPI. ROS Other: All systems not noted in ROS Statement are negative. Past Medical History Past Medical History: COPD, GERD/Reflux Additional Past Medical History / Comment(s): mentally challenged History of Any Multi-Drug Resistant Organisms: None Reported Past Surgical History: Orthopedic Surgery Additional Past Surgical History / Comment(s): rt arm SX Past Anesthesia/Blood Transfusion Reactions: No Reported Reaction Past Psychological History: Anxiety, Depression Smoking Status: Never smoker, Second hand smoke exposure Past Alcohol Use History: None Reported Past Drug Use History: None Reported - Past Family History Mother Family Medical History: No Reported History General Exam - General Exam Comments Initial Comments: General: Well-appearing, nontoxic, no acute distress. Head: Normocephalic, atraumatic Oral: Poor dentition with several missing teeth. Palpatory tenderness to left maxillary oral teeth Eyes: PERRLA, EOMI ENT: Airway patent Chest: Nonlabored breathing Skin: No visual rash, normal skin tone Neuro: Alert and oriented 3 Musculoskeletal: No gross abnormalities Limitations: no limitations Course Vital Signs 09/15/23 07:08 Temperature 97.4 F L Pulse Rate 69 Respiratory 18 Rate Blood Pressure 121/77 O2 Sat by Pulse 95 Oximetry Medical Decision Making - Medical Decision Making Was pt. sent in by a medical professional or institution ([facility], [facility]/STEWARDESS, urgent care, hospital, or residential...) When possible be specific @ -[No] Did you speak to anyone other than the patient for history (EMS, parent, family, police, friend...)? What history was obtained from this source @ -[No] Did you review nursing and triage notes (agree or disagree)? Why? @ -[I reviewed and agree with nursing and triage notes] Were old charts reviewed (outside hosp., previous admission, EMS record, old EKG, old radiological studies, urgent care reports/EKG's, residential records)? Report findings @ -[No old charts were reviewed] Differential Diagnosis (chest pain, altered mental status, abdominal pain women, abdominal pain men, vaginal bleeding, musculoskeletal, weakness, fever, dyspnea, syncope, headache, dizziness, GI bleed, back pain, seizure, CVA, palpatations, mental health)? @ -[not applicable] EKG interpreted by me (3pts min.). @ -[None done] X-rays interpreted by me (1pt min.). @ -[None done] CT interpreted by me (1pt min.). @ -[None done] U/S interpreted by me (1pt. min.). @ -[None done] What testing was considered but not performed or refused? (CT, X-rays, U/S, labs)? Why? @ -[None] What meds were considered but not given or refused? Why? @ -[None] Did you discuss the management of the patient with other professionals (professionals i.e. Dr., PA, STEWARD/STEWARDESS, lab, RT, psych nurse, manager social responsibility, professor of latin american studies, teacher, mail officer, case picker)? Give summary @ -No Was smoking cessation discussed for >3mins.? @ -No Was critical care preformed (if so, how long)? @ -No Were there social determinants of health that impacted care today? How? (Homelessness, low income, unemployed, alcoholism, drug addiction, transportation, low edu. Level, literacy, decrease access to med. care, senior living, rehab)? @ -No Was there de-escalation of care discussed even if they declined (Discuss DNR or withdrawal of care, Hospice)? DNR status @ -No What co-morbidities impacted this encounter? (DM, HTN, Smoking, COPD, CAD, Cancer, CVA, ARF, Chemo, Hep., AIDS, mental health diagnosis, sleep apnea, morbid obesity)? @ -None Was patient admitted / discharged? Hospital course, mention meds given and route, prescriptions, significant lab abnormalities, going to OR and other pertinent info. @ -58-year-old male presents to the emergency department with dental pain. No gingival abscess. Vital signs stable. Patient well-appearing at the bedside. Brother who is his guardian will contact dentist for close follow-up. Clinical presentation likely dental alveolar abscess. Patient a will likely need dental evaluation with likely infected tooth removal. Undiagnosed new problem with uncertain prognosis? @ -No Drug Therapy requiring intensive monitoring for toxicity (Heparin, Nitro, Insulin, Cardizem)? @ -No Were any procedures done? @ -No Diagnosis/symptom? Acute, or Chronic, or Acute on Chronic? Uncomplicated (without systemic symptoms) or Complicated (systemic symptoms)? @ -Dental pain Side effects of treatment? @ -No Exacerbation, Progression, or Severe Exacerbation? @ -No Poses a threat to life or bodily function? How? (Chest pain, [place], CA, pneumonia, PE, COPD, DKA, ARF, appy, cholecystitis, CVA, Diverticulitis, Homicidal, Suicidal, threat to staff... and all critical care pts) @ -No Disposition Clinical Impression: Dental infection Disposition: HOME SELF-CARE Condition: Fair Instructions (If sedation given, give patient instructions): Dental Abscess (ED) Prescriptions: Amoxic-Pot Clav 875-125Mg [Augmentin 875-125] 1 tab PO BID 10 Days #20 tab HYDROcodone/APAP 5-325MG [[place] 5-325] 1 tab PO Q6HR PRN 3 Days #12 tab PRN Reason: Severe Pain Is patient prescribed a controlled substance at d/c from ED?: Yes If prescribed controlled substance>3 days was MAPS reviewed?: Prescribed <3 Days Referrals: Gianfranco Mitchell MD [Primary Care Provider] - 1-2 days Time of Disposition: 07:36
[2023-09-15 07:50] VITALS: BP 135/94; PULSE 64
--- NOTE | 2023-09-15 11:01 | ED ---
Disposition Clinical Impression: Dental infection Disposition: HOME SELF-CARE Condition: Fair Instructions (If sedation given, give patient instructions): Dental Abscess (ED) Prescriptions: Amoxic-Pot Clav 875-125Mg [Augmentin 875-125] 1 tab PO BID 10 Days #20 tab HYDROcodone/APAP 5-325MG [[place] 5-325] 1 tab PO Q6HR PRN 3 Days #12 tab PRN Reason: Severe Pain Is patient prescribed a controlled substance at d/c from ED?: No Referrals: Gianfranco Mitchell MD [Primary Care Provider] - 1-2 days
== END 2023-09-15 07:46 | disposition home or self-care (01) ==
LOC: EC 07:04
DX: K04.7 Periapical abscess without sinus (principal); Z77.22 Contact with and (suspected) exposure to environmental tobacco smoke (acute) (chronic)
CPT/HCPCS: 99283

== ENCOUNTER → 2023-11-03 | Outpatient (CLI) | payer MEDICARE, OTHER ==
--- NOTE | 2023-11-05 09:10 | CA ---
Transthoracic Echo Report Name: Saúl Ruelas Age: 58 Gender: M : 1965 Exam Date: 11/03/2023 14:36 Exam Location: [place] [facility] Ht (in): 70 Wt (lb): 200 Ordering Physician: Gianfranco Mitchell MD Attending/Referring Phys: Gianfranco Mitchell MD Specialty Cook Jackie Salcido, [facility] Procedure CPT: Indications: R00.2 SOB R00.1 BRADYCARDIA, UNSPECIFIED Cardiac Hx: Technical Quality: Fair Contrast 1: Total Dose (mL): Contrast 2: Total Dose (mL): MEASUREMENTS (Male / Female) Normal Values 2D ECHO LV Diastolic Diameter PLAX 5.3 cm 4.2 - 5.9 / 3.9 - 5.3 cm LV Systolic Diameter PLAX 3.1 cm IVS Diastolic Thickness 1.2 cm 0.6 - 1.0 / 0.6 - 0.9 cm LVPW Diastolic Thickness 1.1 cm 0.6 - 1.0 / 0.6 - 0.9 cm LV Relative Wall Thickness 0.4 RV Internal Dim ED PLAX 2.7 cm LA Systolic Diameter LX 5.0 cm 3.0 - 4.0 / 2.7 - 3.8 cm LV Diastolic Volume MOD BP 85.9 cm??? 67 - 155 / 56 - 104 cm??? LV Systolic Volume MOD BP 33.0 cm??? 22 - 58 / 19 - 49 cm??? LV Ejection Fraction MOD BP 61.5 % >= 55 % LV Diastolic Volume MOD 4C 76.7 cm??? LV Systolic Volume MOD 4C 34.2 cm??? LV Ejection Fraction MOD 4C 55.5 % LV Diastolic Length 4C 8.2 cm LV Systolic Length 4C 6.4 cm LV Diastolic Volume MOD 2C 90.9 cm??? LV Systolic Volume MOD 2C 28.1 cm??? LV Ejection Fraction MOD 2C 69.1 % LV Diastolic Length 2C 7.7 cm LV Systolic Length 2C 5.6 cm M-MODE Aortic Root Diameter MM 2.9 cm LA Systolic Diameter MM 4.4 cm LA Ao Ratio MM 1.5 DOPPLER AV Peak Velocity 100.8 cm/s AV Peak Gradient 4.1 mmHg Mitral E Point Velocity 66.2 cm/s Mitral A Point Velocity 66.2 cm/s Mitral E to A Ratio 1.0 MV Deceleration Time 276.9 ms MV E' Velocity 6.4 cm/s Mitral E to MV E' Ratio 10.3 FINDINGS Left Ventricle Left ventricular ejection fraction is estimated at 55-60%. Mildly increased septal wall thickness. Normal left ventricular systolic function with no obvious regional wall motion abnormalities. Normal left ventricular wall motion. No obvious regional wall motion abnormalities.left ventricular cavity size normal. Right Ventricle Normal right ventricular size and function. Right ventricular systolic pressure within normal limits. Right Atrium Normal right atrial size. Left Atrium Moderately increased left atrial diameter. Mitral Valve Structurally normal mitral valve. Trace mitral regurgitation. No mitral stenosis. Aortic Valve Trileaflet aortic valve. No aortic valve stenosis or regurgitation. Tricuspid Valve Structurally normal tricuspid valve. Trace tricuspid regurgitation. Pulmonic Valve Structurally normal pulmonic valve. Trace pulmonic regurgitation. Pericardium No pericardial or pleural effusion. Aorta Normal size aortic root and proximal ascending aorta. CONCLUSIONS Normal LV systolic function Previewed by: Dr. Darian Soliman MD (Electronically Signed) Final Date: 05 Nov 2023 09:09
== END | disposition home or self-care (01) ==
LOC: RADCTMAIN 13:02
PROVIDERS: ATTEND Family Medicine
DX: R06.02 Shortness of breath (principal); R00.1 Bradycardia, unspecified
CPT/HCPCS: 93306; 71275; Q9967

== ENCOUNTER 2023-12-12 12:53 | Emergency (ER) | payer MEDICARE, OTHER ==
--- NOTE | 2023-12-12 13:05 | ED ---
SOB HPI - General Source: patient, RN notes reviewed Mode of arrival: ambulatory Limitations: no limitations - History of Present Illness MD Complaint: shortness of breath, cough <Selina Barron - Last Filed: 12/12/23 13:03> <Davi Lewis - Last Filed: 12/12/23 18:18> - General Chief Complaint: Shortness of Breath Stated Complaint: SOB/Cough Time Seen by Provider: 12/12/23 13:03 - History of Present Illness Initial Comments: Quick Note: This is a 66-year-old male who presents to the emergency department for shortness of breath, wheezing, and coughing. Patient has a history of COPD and states that symptoms have been getting worse over the last month. He is using breathing treatments which are somewhat helpful. Denies any chest pain. (Selina Barron) I do agree with the above assessment. The patient does state the same thing when I interviewed him. No fevers chills sweats no overt phlegm production. He does get some improvement with his home breathing medication. No recent exposures to any infectious diseases that he is aware of he is a non-smoker but has been exposed to secondhand smoke in the past. No chest pain no other symp toms reported (Davi Lewis) - Related Data Home Medications Medication Instructions Recorded Confirmed Famotidine [Pepcid] 40 mg PO HS 03/29/21 12/12/23 OLANZapine 10 mg PO HS 03/29/21 12/12/23 Venlafaxine HCl [Effexor XR] 37.5 mg PO HS 07/25/22 12/12/23 busPIRone HCL 5 mg PO BID 07/25/22 12/12/23 Albuterol Inhaler [Ventolin Hfa 2 puff INHALATION RT-Q6H PRN 08/23/22 12/12/23 Inhaler] Fluticasone/Umeclidin/Vilanter 1 puff INHALATION RT-DAILY 08/23/22 12/12/23 [Trelegy Ellipta 100-62.5-25] Atenolol/Chlorthalidone 1 tab PO DAILY 12/12/23 12/12/23 [Atenolol/Chlorthalidone 50-25] Ipratropium-Albuterol Nebulize 3 ml INHALATION RT-QID 12/12/23 12/12/23 [Duoneb 0.5 mg-3 mg/3 ml Soln] Rosuvastatin Calcium [Crestor] 5 mg PO HS 12/12/23 12/12/23 Previous Rx's Medication Instructions Recorded Ipratropium/Albuter 20-100Mcg 1 puff INHALATION QID #4 gm 12/12/23 [Combivent Respimat 20-100Mcg Inhaler] Magnesium Carb,Citrate,Oxide 300 mg PO DAILY #7 tablet 12/12/23 [Magnesium Complex] Potassium Chloride ER [K-Dur 20] 20 meq PO DAILY #7 tab 12/12/23 predniSONE [Deltasone] 20 mg PO BID #10 tab 12/12/23 Allergies Allergy/AdvReac Type Severity Reaction Status Date / Time No Known Allergies Allergy Verified 12/12/23 17:16 Review of Systems ROS Other: All systems not noted in ROS Statement are negative. <Selina Barron - Last Filed: 12/12/23 13:03> ROS Other: All systems not noted in ROS Statement are negative. <Davi Lewis - Last Filed: 12/12/23 18:18> ROS Statement: Those systems with pertinent positive or pertinent negative responses have been documented in the HPI. Past Medical History Past Medical History: COPD, GERD/Reflux Additional Past Medical History / Comment(s): mentally challenged History of Any Multi-Drug Resistant Organisms: None Reported Past Surgical History: Orthopedic Surgery Additional Past Surgical History / Comment(s): rt arm SX Past Anesthesia/Blood Transfusion Reactions: No Reported Reaction Past Psychological History: Anxiety, Depression Smoking Status: Never smoker, Second hand smoke exposure Past Alcohol Use History: None Reported Past Drug Use History: None Reported - Past Family History Mother Family Medical History: No Reported History <Selina Barron - Last Filed: 12/12/23 13:03> General Exam Limitations: no limitations <Selina Barron - Last Filed: 12/12/23 13:03> General appearance: alert, in no apparent distress Head exam: Present: atraumatic, normocephalic, normal inspection Eye exam: Present: normal appearance, PERRL, EOMI. Absent: scleral icterus, conjunctival injection, periorbital swelling ENT exam: Present: mucous membranes dry, mucous membranes moist Neck exam: Present: normal inspection, full ROM, other (No stridor JVD or bruits). Absent: tenderness, meningismus, lymphadenopathy Respiratory exam: Present: decreased breath sounds, other (Gatter rhonchi diminished breath sounds he does seem to improve with deep breathing and cough). Absent: respiratory distress, wheezes, rales, rhonchi, stridor Cardiovascular Exam: Present: regular rate, normal rhythm, normal heart sounds. Absent: systolic murmur, diastolic murmur, rubs, gallop, clicks GI/Abdominal exam: Present: soft, normal bowel sounds. Absent: distended, tenderness, guarding, rebound, rigid Extremities exam: Present: normal inspection, full ROM, normal capillary refill. Absent: tenderness, pedal edema, joint swelling, calf tenderness Back exam: Present: normal inspection Neurological exam: Present: alert, oriented X3, CN II-XII intact Psychiatric exam: Present: normal affect, normal mood Skin exam: Present: warm, dry, intact, normal color. Absent: rash <Davi Lewis - Last Filed: 12/12/23 18:18> - General Exam Comments Initial Comments: Visual Physical Exam Vital signs reviewed General: Well-appearing, nontoxic, no acute distress. Head: Normocephalic, atraumatic Eyes: PERRLA, EOMI ENT: Airway patent Chest: Nonlabored breathing Skin: No visual rash, normal skin tone Neuro: Alert and oriented 3 Musculoskeletal: No gross abnormalities (Selina Barron) There is a well-developed well-nourished awake alert oriented x 4 male (Davi Lewis) Course Vital Signs 12/12/23 13:00 Temperature 97.7 F Pulse Rate 67 Respiratory 22 Rate Blood Pressure 120/79 O2 Sat by Pulse 97 Oximetry Medical Decision Making <Selina Barron - Last Filed: 12/12/23 13:03> - Lab Data Result diagrams: 12/12/23 13:22 12/12/23 13:22 <Davi Lewis - Last Filed: 12/12/23 18:18> - Medical Decision Making I performed the QuickNote portion of this chart. Signed Selina Barron PA-C. (Selina Barron) I did discuss findings with patient and family member that was present. Patient currently is symptom-free he does present with symptoms consistent with COPD. He was noted to have a diminished potassium level and borderline magnesium level. After discussion the patient will be discharged we placed on Combivent a short course of steroids he has a follow-up with his doctor I also do recommend potassium and magnesium supplementation he currently does get a multivitamin at night. He will follow-up with his doctor and return as needed was pt. sent in by a medical professional or institution ([facility] Hidalgo, BOILER HELPER, urgent care, hospital, or half-way...) When possible be specific @ -No Did you speak to anyone other than the patient for history (EMS, parent, family, police, friend...)? What history was obtained from this source @ -Me member Did you review nursing and triage notes (agree or disagree)? Why? @ -I reviewed and agree with nursing and triage notes Were old charts reviewed (outside hosp., previous admission, EMS record, old EKG, old radiological studies, urgent care reports/EKG's, half-way records)? Report findings @ -Old charts were reviewed Differential Diagnosis (chest pain, altered mental status, abdominal pain women, abdominal pain men, vaginal bleeding, weakness, fever, dyspnea, syncope, headache, dizziness, GI bleed, back pain, seizure, CVA, palpatations, mental health, musculoskeletal)? @ -Not applicable EKG interpreted by me (3pts min.). @ -As above EKG interpreted by me sinus rhythm at 66 parable 156 QRS duration 76 QT/QTc 383/396 nonspecific T wave configuration X-rays interpreted by me (1pt min.). @ -X-ray interpreted by me lung avendano are clear increased gas pattern seen on the portion of the abdomen is viewed no evidence of obstructive process CT interpreted by me (1pt min.). @ -None done U/S interpreted by me (1pt. min.). @ -None done What testing was considered but not performed or refused? (CT, X-rays, U/S, labs)? Why? @ -None What meds were considered but not given or refused? Why? @ -None Did you discuss the management of the patient with other professionals (professionals i.e. PANDA Hidalgo, BOILER HELPER, lab, RT, psych nurse, social services analyst, boiler tender, teacher, life science technical officer, supportive employment case manager)? Give summary @ -No Was smoking cessation discussed for >3mins.? @ -No Was critical care preformed (if so, how long)? @ -No Were there social determinants of health that impacted care today? How? (Homelessness, low income, unemployed, alcoholism, drug addiction, transportation, low edu. Level, literacy, decrease access to med. care, correction, rehab)? @ -Mentally disabled Was there de-escalation of care discussed even if they declined (Discuss DNR or withdrawal of care, Hospice)? DNR status @ -No What co-morbidities impacted this encounter? (DM, HTN, Smoking, COPD, CAD, Cancer, CVA, ARF, Chemo, Hep., AIDS, mental health diagnosis, sleep apnea, morbid obesity)? @ -COPD Was patient admitted / discharged? Hospital course, mention meds given and route, prescriptions, significant lab abnormalities, going to OR and other pertinent info. @ -Hospital course was discharged home Undiagnosed new problem with uncertain prognosis? @ -No Drug Therapy requiring intensive monitoring for toxicity (Heparin, Nitro, Insulin, Cardizem)? @ -No Were any procedures done? @ -No Diagnosis/symptom? @ -OPD exacerbation, hypokalemia, dehydration Acute, or Chronic, or Acute on Chronic? @ -Acute on chronic Uncomplicated (without systemic symptoms) or Complicated (systemic symptoms)? @ -Default Side effects of treatment? @ -No Exacerbation, Progression, or Severe Exacerbation? @ -No Poses a threat to life or bodily function? How? (Chest pain, [place], [place], pneumonia, PE, COPD, DKA, ARF, appy, cholecystitis, CVA, Diverticulitis, Homicidal, Suicidal, threat to staff... and all critical care pts) @ -No (Davi Lewis) - Lab Data Lab Results 12/12/23 12/12/23 12/12/23 Range/Units 13:04 13:22 13:22 WBC 8.5 (3.8-10.6) k/uL RBC 5.51 (4.30-5.90) m/uL Hgb 15.7 (13.0-17.5) gm/dL Hct 46.5 (39.0-53.0) % MCV 84.4 (80.0-100.0) fL MCH 28.6 (25.0-35.0) pg MCHC 33.9 (31.0-37.0) g/dL RDW 13.5 (11.5-15.5) % Plt Count 321 (150-450) k/uL MPV 8.3 Neutrophils % 73 % Lymphocytes % 17 % Monocytes % 6 % Eosinophils % 2 % Basophils % 0 % Neutrophils # 6.3 (1.3-7.7) k/uL Lymphocytes # 1.4 (1.0-4.8) k/uL Monocytes # 0.5 (0-1.0) k/uL Eosinophils # 0.2 (0-0.7) k/uL Basophils # 0.0 (0-0.2) k/uL PT 10.2 (10.0-12.5) sec INR 0.9 (<1.2) APTT 24.4 (22.0-30.0) sec D-Dimer (<0.60) mg/L FEU Sodium (137-145) mmol/L Potassium (3.5-5.1) mmol/L Chloride (98-107) mmol/L Carbon Dioxide (22-30) mmol/L Anion Gap mmol/L BUN (9-20) mg/dL Creatinine (0.66-1.25) mg/dL Est GFR (CKD-EPI)AfAm (>60 ml/min/1.73 sqM) Est GFR (CKD-EPI)NonAf (>60 ml/min/1.73 sqM) Glucose (74-99) mg/dL Plasma Lactic Acid Herb (0.7-2.0) mmol/L Calcium (8.4-10.2) mg/dL Magnesium (1.6-2.3) mg/dL Total Bilirubin (0.2-1.3) mg/dL AST (17-59) U/L ALT (4-49) U/L Alkaline Phosphatase (38-126) U/L Troponin I (0.000-0.034) ng/mL NT-Pro-B Natriuret Pep pg/mL Total Protein (6.3-8.2) g/dL Albumin (3.5-5.0) g/dL Influenza Type A (PCR) Not Detected (Not Detectd) Influenza Type B (PCR) Not Detected (Not Detectd) RSV (PCR) Not Detected (Not Detectd) SARS-CoV-2 (PCR) Not Detected (Not Detectd) 12/12/23 12/12/2324 Range/Units 13:22 13:22 13:22 WBC (3.8-10.6) k/uL RBC (4.30-5.90) m/uL Hgb (13.0-17.5) gm/dL Hct (39.0-53.0) % MCV (80.0-100.0) fL MCH (25.0-35.0) pg MCHC (31.0-37.0) g/dL RDW (11.5-15.5) % Plt Count (150-450) k/uL MPV Neutrophils % % Lymphocytes % % Monocytes % % Eosinophils % % Basophils % % Neutrophils # (1.3-7.7) k/uL Lymphocytes # (1.0-4.8) k/uL Monocytes # (0-1.0) k/uL Eosinophils # (0-0.7) k/uL Basophils # (0-0.2) k/uL PT (10.0-12.5) sec INR (<1.2) APTT (22.0-30.0) sec D-Dimer 0.39 (<0.60) mg/L FEU Sodium 141 (137-145) mmol/L Potassium 3.3 L (3.5-5.1) mmol/L Chloride 109 H (98-107) mmol/L Carbon Dioxide 21 L (22-30) mmol/L Anion Gap 11 mmol/L BUN 29 H (9-20) mg/dL Creatinine 1.38 H (0.66-1.25) mg/dL Est GFR (CKD-EPI)AfAm 64 (>60 ml/min/1.73 sqM) Est GFR (CKD-EPI)NonAf 55 (>60 ml/min/1.73 sqM) Glucose 112 H (74-99) mg/dL Plasma Lactic Acid Herb (0.7-2.0) mmol/L Calcium 9.2 (8.4-10.2) mg/dL Magnesium 1.8 (1.6-2.3) mg/dL Total Bilirubin 0.4 (0.2-1.3) mg/dL AST 24 (17-59) U/L ALT 24 (4-49) U/L Alkaline Phosphatase 96 (38-126) U/L Troponin I <0.012 (0.000-0.034) ng/mL NT-Pro-B Natriuret Pep 138 pg/mL Total Protein 6.2 L (6.3-8.2) g/dL Albumin 4.0 (3.5-5.0) g/dL Influenza Type A (PCR) (Not Detectd) Influenza Type B (PCR) (Not Detectd) RSV (PCR) (Not Detectd) SARS-CoV-2 (PCR) (Not Detectd) 12/12/23 Range/Units 16:28 WBC (3.8-10.6) k/uL RBC (4.30-5.90) m/uL Hgb (13.0-17.5) gm/dL Hct (39.0-53.0) % MCV (80.0-100.0) fL MCH (25.0-35.0) pg MCHC (31.0-37.0) g/dL RDW (11.5-15.5) % Plt Count (150-450) k/uL MPV Neutrophils % % Lymphocytes % % Monocytes % % Eosinophils % % Basophils % % Neutrophils # (1.3-7.7) k/uL Lymphocytes # (1.0-4.8) k/uL Monocytes # (0-1.0) k/uL Eosinophils # (0-0.7) k/uL Basophils # (0-0.2) k/uL PT (10.0-12.5) sec INR (<1.2) APTT (22.0-30.0) sec D-Dimer (<0.60) mg/L FEU Sodium (137-145) mmol/L Potassium (3.5-5.1) mmol/L Chloride (98-107) mmol/L Carbon Dioxide (22-30) mmol/L Anion Gap mmol/L BUN (9-20) mg/dL Creatinine (0.66-1.25) mg/dL Est GFR (CKD-EPI)AfAm (>60 ml/min/1.73 sqM) Est GFR (CKD-EPI)NonAf (>60 ml/min/1.73 sqM) Glucose (74-99) mg/dL Plasma Lactic Acid Herb 1.6 (0.7-2.0) mmol/L Calcium (8.4-10.2) mg/dL Magnesium (1.6-2.3) mg/dL Total Bilirubin (0.2-1.3) mg/dL AST (17-59) U/L ALT (4-49) U/L Alkaline Phosphatase (38-126) U/L Troponin I (0.000-0.034) ng/mL NT-Pro-B Natriuret Pep pg/mL Total Protein (6.3-8.2) g/dL Albumin (3.5-5.0) g/dL Influenza Type A (PCR) (Not Detectd) Influenza Type B (PCR) (Not Detectd) RSV (PCR) (Not Detectd) SARS-CoV-2 (PCR) (Not Detectd) Disposition <Selina Barron - Last Filed: 12/12/23 13:03> Is patient prescribed a controlled substance at d/c from ED?: No Time of Disposition: 18:18 Decision Date: 12/12/23 Decision Time: 18:18 <Davi Lewis - Last Filed: 12/12/23 18:18> Clinical Impression: Acute exacerbation of chronic obstructive pulmonary disease, Dehydration, Hypokalemia Disposition: HOME SELF-CARE Condition: Good Instructions (If sedation given, give patient instructions): COPD (Chronic Obstructive Pulmonary Disease) (ED), Hypokalemia (ED), Dehydration (ED) Prescriptions: Ipratropium/Albuter 20-100Mcg [Combivent Respimat 20-100Mcg Inhaler] 1 puff INHALATION QID #4 gm predniSONE [Deltasone] 20 mg PO BID #10 tab Potassium Chloride ER [K-Dur 20] 20 meq PO DAILY #7 tab Magnesium Carb,Citrate,Oxide [Magnesium Complex] 300 mg PO DAILY #7 tablet Referrals: Gianfranco Mitchell MD [Primary Care Provider] - 1-2 days
[2023-12-12 13:43] LABS: Basophils % (A) 0 %; Eosinophils # (A) 0.2 k/uL (0-0.7); Eosinophils % (A) 2 %; HCT 46.5 % (39.0-53.0); HGB 15.7 gm/dL (13.0-17.5); Lymphocytes # (A) 1.4 k/uL (1.0-4.8); Lymphocytes % (A) 17 %; MCH 28.6 pg (25.0-35.0); MCHC 33.9 g/dL (31.0-37.0); MCV 84.4 fL (80.0-100.0); Mean Platelet Volume 8.3; Monocytes # (A) 0.5 k/uL (0-1.0); Monocytes % (A) 6 %; Neutrophils # (A) 6.3 k/uL (1.3-7.7); Neutrophils % (A) 73 %; Platelet Count 321 k/uL (150-450); RBC 5.51 m/uL (4.30-5.90); RDW 13.5 % (11.5-15.5); WBC 8.5 k/uL (3.8-10.6)
[2023-12-12 13:51] LABS: INR 0.9 (<1.2); Partial Thromboplastin Time 24.4 sec (22.0-30.0); Prothrombin Time 10.2 sec (10.0-12.5)
[2023-12-12 13:54] LABS: ALT 24 U/L (4-49); AST 24 U/L (17-59); African American GFR (CKD) 64 (>60 ml/min/1.73 sqM); Alkaline Phosphatase 96 U/L (38-126); Anion Gap 11 mmol/L; Blood Urea Nitrogen 29 mg/dL (9-20); Calcium 9.2 mg/dL (8.4-10.2); Carbon Dioxide 21 mmol/L (22-30); Chloride 109 mmol/L (98-107); Glucose 112 mg/dL (74-99); Magnesium 1.8 mg/dL (1.6-2.3); Non-African American GFR(CKD) 55 (>60 ml/min/1.73 sqM); Potassium 3.3 mmol/L (3.5-5.1); Sodium 141 mmol/L (137-145); Total Bilirubin 0.4 mg/dL (0.2-1.3); Total Protein 6.2 g/dL (6.3-8.2)
[2023-12-12 14:02] LABS: NT-Pro-B-Type Natriuretic Pept 138 pg/mL
--- NOTE | 2023-12-12 14:09 | XR ---
EXAMINATION TYPE: XR chest 2V DATE OF EXAM: 12/12/2023 COMPARISON: 08/23/2022 TECHNIQUE: PA and lateral views submitted. HISTORY: Cough FINDINGS: The lungs are clear and there is no pneumothorax, pleural effusion, or focal pneumonia. Heart size normal and no overt failure. Osseous structures demonstrate hypertrophic and degenerative changes of the spine. Limited inspiration with elevated left hemidiaphragm. Prominent bowel loops in the abdomen . IMPRESSION: 1. No acute process. 2. There are prominent bowel loops in the upper abdomen with gastric distention partially included th e [id number]. Correlate clinically.
[2023-12-12 19:31] VITALS: BP 123/80; PULSE 68; RESP 19; TEMP 97.9
== END 2023-12-12 19:26 | disposition home or self-care (01) ==
LOC: EC 12:53
DX: J44.1 Chronic obstructive pulmonary disease with (acute) exacerbation (principal); E86.0 Dehydration; E87.6 Hypokalemia; Z77.22 Contact with and (suspected) exposure to environmental tobacco smoke (acute) (chronic)
CPT/HCPCS: 36415; 71046; 80053; 83605; 83735; 83880; 84484; 85025; 85379; 85610; 85730; 87636; 93005; 99284; 99285

== ENCOUNTER → 2023-12-28 | Outpatient (CLI) | payer MEDICARE, OTHER ==
--- NOTE | 2023-12-28 16:03 | CT ---
EXAMINATION TYPE: CT chest abdomen wo/w con CT DLP: 1792.6 mGycm, Automated exposure control for dose reduction was used. DATE OF EXAM: 12/28/2023 3:22 PM COMPARISON: 11/03/2023 CLINICAL INDICATION:Male, 58 years old with history of R93.89;, abdominal pain Technique: CT chest abdomen wo/w con; Multiple axial images were obtained. Two-dimensional coronal an d sagittal reconstructions were obtained. Contrast used:100 mL of Isovue 300 without and with IV Contrast, Oral contrast used: with Oral Contrast Findings: CHEST: LUNGS/ PLEURA: No focal consolidation, pneumothorax or pleural effusion. AIRWAY: Patent and unremarkable. HEART: Size within normal limits. MEDIASTINUM: No gross evidence of adenopathy. VASCULATURE: No aortic aneurysm. MUSCULOSKELETAL: No acute osseous abnormalities. SOFT TISSUES/LYMPH NODES: Unremarkable. LOWER NECK: No significant findings. ABDOMEN: ABDOMEN LIVER: Unremarkable GALLBLADDER AND BILE DUCTS: Unremarkable. PANCREAS: Unremarkable. SPLEEN: Unremarkable. ADRENAL GLANDS: Unremarkable. KIDNEYS AND URETERS: No evidence of hydronephrosis or renal calculus. The ureters are unremarkable. PELVIS BLADDER: Unremarkable REPRODUCTIVE: Unremarkable. ABDOMEN & PELVIS STOMACH AND BOWEL: No evidence of bowel obstruction. Gaseous distention of bowel. There is a fat cont aining hernia the along the esophagus. PERITONEUM: No evidence of pneumoperitoneum or free fluid. VASCULATURE: No evidence of aortic aneurysm. MUSCULOSKELETAL: No acute osseous abnormalities LYMPH NODES: No gross evidence for lymphadenopathy. SOFT TISSUE/ABDOMINAL WALL: Unremarkable IMPRESSION: No acute thoracic or abdominal process. There is gaseous distention of colon in the upper abdomen whi ch is nonspecific.
== END | disposition home or self-care (01) ==
LOC: RADCTMAIN 14:18
PROVIDERS: ATTEND Family Medicine
DX: R14.0 Abdominal distension (gaseous) (principal); K44.9 Diaphragmatic hernia without obstruction or gangrene; R93.89 Abnormal findings on diagnostic imaging of other specified body structures
CPT/HCPCS: 71270; 74170; Q9967